=== PATIENT | male | born 2000 | race Hispanic/Latino ===

== ENCOUNTER → 2024-03-15 | Outpatient (CLI) | payer SELFPAY ==
--- NOTE | 2024-03-15 11:52 | US_ITS ---
Duplex scrotal sonogram INDICATION: Scrotal pain and palpable lump TECHNIQUE: Duplex scan of the scrotum was performed in sagittal and axial projections. FINDINGS: The right testis measures 4.9 x 3 x 2.3 cm and demonstrates homogeneous echogenicity and vascularity.. No discrete nodules observed Epididymis measures 1.4 x 1 x 0.9 cm and demonstrates normal vascularity. Small epididymal cyst measuring 7 x 4 x 5 mm. There is a small hydrocele. Left testis measures 4.2 x 3.1 x 2.3 cm demonstrating normal vascularity and homogeneous echogenicity. No discrete nodule is observed Epididymis measures 1.2 x 1 x 0.6 cm. There is a tiny cyst measuring 4 x 4 by 3 mm No hydrocele is observed. US/Testicular with Arterial Flow IMPRESSION: No evidence for testicular mass or torsion. Small right epididymal cyst measuring 6.9 x 5 x 4.4 mm and small hydrocele Tiny left epididymal cyst measuring 4 x 4 by 3 mm Electronically Signed: Joseph Thornton MD at 18:55 EDT ,
== END | disposition home or self-care (01) ==
PROVIDERS: PCP Nurse Practitioner Family; Referring Provider Nurse Practitioner Family; Visit Provider Nurse Practitioner Family
DX: N50.819 Testicular pain, unspecified (principal)
CPT/HCPCS: 76870; 93976